=== PATIENT | male | born 1980 | race Caucasian/White ===

== ENCOUNTER 2016-12-14 17:50 | Emergency (ER) | payer OTHER ==
[~2016-12-14] VITALS: Ht 185.4 cm; Wt 81.8 kg
[2016-12-14 18:10] VITALS: Ht 185.4 cm; Wt 81.8 kg
[2016-12-14 18:53] LABS: ADD SCAN DIFF NO
[2016-12-14 18:55] LABS: BASOPHIL # 0.1 10^3/ul (0.0-0.1); EOSINOPHILS # 0.3 10^3/ul (0.0-0.5); EOSINOPHILS % 5.2 % (0.0-7.0); HEMATOCRIT 43.4 % (42.0-52.0); HEMOGLOBIN 15.1 g/dl (14.0-18.0); LYMPHOCYTES # 2.1 10^3/ul (0.8-2.9); LYMPHOCYTES % 33.3 % (15.0-51.0); MEAN CORPUSCULAR HEMOGLOBIN 32.5 pg (29.0-33.0); MEAN CORPUSCULAR HGB CONC 34.8 g/dl (32.0-37.0); MEAN CORPUSCULAR VOLUME 93.5 fl (82.0-101.0); MEAN PLATELET VOLUME 9.4 fl (7.4-10.4); MONOCYTE # 0.4 10^3/ul (0.3-0.9); MONOCYTES % 6.8 % (0.0-11.0); NEUTROPHIL # 3.4 10^3/ul (1.6-7.5); NEUTROPHILS % 53.5 % (39.0-77.0); PLATELET COUNT 280 10^3/UL (140-415); RED BLOOD COUNT 4.64 10^6/ul (4.70-6.10); RED CELL DISTRIBUTION WIDTH 12.8 % (11.5-14.5); WHITE BLOOD COUNT 6.3 10^3/ul (4.8-10.8)
[2016-12-14 19:13] LABS: ALBUMIN 3.3 g/dl (3.3-4.9); CHLORIDE 108 mmol/L (97-110); SODIUM 144 mmol/L (135-144)
[2016-12-14 19:14] LABS: POTASSIUM 3.6 mmol/L (3.5-5.1)
[2016-12-14 19:15] LABS: CREATININE 0.83 mg/dl (0.61-1.24)
[2016-12-14 19:16] LABS: ALANINE AMINOTRANSFERASE 38 IU/L (13-69); ALBUMIN/GLOBULIN RATIO 1.43; ALKALINE PHOSPHATASE 45 IU/L (42-121); ANION GAP 14 (8-16); ASPARTATE AMINO TRANSFERASE 33 IU/L (15-46); BILIRUBIN,INDIRECT 0.2 mg/dl (0-1.1); BILIRUBIN,TOTAL 0.2 mg/dl (0.2-1.3); BLOOD UREA NITROGEN 9 mg/dl (7-20); CALCIUM 8.5 mg/dl (8.4-10.2); CARBON DIOXIDE 26 mmol/L (21-31); GLUCOSE 109 mg/dl (70-220); TOTAL PROTEIN 5.6 g/dl (6.1-8.1)
[2016-12-14 19:20] LABS: ACETAMINOPHEN < 10.0 ug/ml (10.0-30.0); SALICYLATE < 1.0 mg/dl (5.0-30.0)
--- NOTE | 2016-12-14 21:03 | ERD ---
ER Documentation Chief Complaint Date/Time DATE: 12/14/16 TIME: 20:59 Chief Complaint etoh from drinking "4 [employer]"; sleeping on bus bench HPI 36-year-old man brought in by EMS for public intoxication. Patient admits to drinking alcohol today and has a history of alcoholism. Patient denies suicidal homicidal ideation, no vomiting or diarrhea, no complaints of chest pain or shortness of breath. Patient was transported here by EMS without further complications. ROS All systems reviewed and are negative except as per history of present illness. Medications Home Meds Unable to Obtain Active Prescriptions or Reported Meds Allergies Allergies: Coded Allergies: No Known Allergy (Unverified , 03/21/15) PMhx/Soc Medical and Surgical Hx: pt denies Medical Hx, pt denies Surgical Hx Anesthesia Reaction: No (RIYA) Hx Respiratory Disorders: No (RIYA) Hx Cardiac Disorders: No (RIYA) Hx Psychiatric Problems: Yes (MOOD DISORDER) Hx Alcohol Use: Yes Hx Tobacco Use: No Smoking Status: Current every day smoker FmHx Family History: No diabetes Physical Exam Vitals Vital Signs Date Time Temp Pulse Resp B/P Pulse Ox O2 Delivery O2 Flow Rate FiO2 12/14/16 18:10 98.1 18 18 108/56 97 Physical Exam GENERAL: Well-developed, well-nourished, patient was intoxicated with alcohol on breath HEENT: Moist mucous membranes, pink conjunctiva, no cervical spine tenderness or step-off deformities, no goiter, no jaundice or icterus, extraocular movements intact without pain. No submandibular induration, and no pharyngeal erythema NEURO: Alert and oriented 3, cranial nerves II through XII intact bilaterally, pupils equal round reactive to light, no focal deficits or facial asymmetry, sensation intact distally Strength 5/5 in upper and lower extremities bilaterally CARDIAC: Regular rate and rhythm, no murmurs rubs or gallops LUNGS: Clear bilaterally no wheezing crackles or stridor ABDOMEN: Soft nontender, no guarding, no rigidity, no rebound, no psoas sign no obturator sign. Normoactive bowel sounds SKIN: Warm and dry to touch, no abrasions, contusions, or hematomas, no lacerations, no ecchymosis, no target lesions, and without ulcers EXTREMITIES: No clubbing cyanosis or edema, calves are bilaterally symmetrical, no Homans sign, no popliteal cord sign. Distal pulses equal and bilateral PSYCH: Normal affect without agitation or irritability Result Diagram: 12/14/16 1848 12/14/16 1848 Results 24 hrs Laboratory Tests Test 12/14/16 18:48 White Blood Count 6.310^3/ul Red Blood Count 4.6410^6/ul Hemoglobin 15.1g/dl Hematocrit 43.4% Mean Corpuscular Volume 93.5fl Mean Corpuscular Hemoglobin 32.5pg Mean Corpuscular Hemoglobin Concent 34.8g/dl Red Cell Distribution Width 12.8% Platelet Count 18360^3/UL Mean Platelet Volume 9.4fl Neutrophils % 53.5% Lymphocytes % 33.3% Monocytes % 6.8% Eosinophils % 5.2% Basophils % 1.0% Nucleated Red Blood Cells % 0.0/100WBC Neutrophils # 3.410^3/ul Lymphocytes # 2.110^3/ul Monocytes # 0.410^3/ul Eosinophils # 0.310^3/ul Basophils # 0.110^3/ul Nucleated Red Blood Cells # 0.010^3/ul Sodium Level 144mmol/L Potassium Level 3.6mmol/L Chloride Level 108mmol/L Carbon Dioxide Level 26mmol/L Anion Gap 14 Blood Urea Nitrogen 9mg/dl Creatinine 0.83mg/dl Glucose Level 109mg/dl Calcium Level 8.5mg/dl Total Bilirubin 0.2mg/dl Direct Bilirubin 0.00mg/dl Indirect Bilirubin 0.2mg/dl Aspartate Amino Transf (AST/SGOT) 33IU/L Alanine Aminotransferase (ALT/SGPT) 38IU/L Alkaline Phosphatase 45IU/L Total Protein 5.6g/dl Albumin 3.3g/dl Globulin 2.30g/dl Albumin/Globulin Ratio 1.43 Salicylates Level < 1.0mg/dl Acetaminophen Level < 10.0ug/ml Ethyl Alcohol Level 330.0mg/dl Procedures/MDM Patient was placed in the ED gurney and slept comfortably. Patient's vital signs are normal. CBC and electrolytes are normal, aspirin Tylenol levels negative, alcohol level elevated at 330. Differential diagnoses considered, included but not limited to acute coronary syndrome, pulmonary embolism, aortic dissection, abdominal aortic aneurysm, sepsis, stroke, meningitis, encephalitis, pneumonia, appendicitis, cholecystitis , bowel obstruction, pyelonephritis, nephrolithiasis, cystitis, as well as metabolic, hematologic, and electrolyte abnormalities. As well as abscess, cellulitis, fractures, and dislocations. Patient feels much better at this time, and vital signs are normal, symptoms have improved. I did give strict instructions to return to the ED if symptoms continue or worsen, patient will otherwise follow-up with primary care physician. Patient understood instructions and agreed to plan. Departure Diagnosis: Primary Impression: Alcoholic intoxication Complication of substance-induced condition: uncomplicated Qualified Code: F10.120 - Alcoholic intoxication, uncomplicated Condition: Good Patient Instructions: Alcohol Intoxication ABILIO YEE MD December 14, 2016 21:02
== END 2016-12-14 21:48 | disposition left against medical advice (07) ==
LOC: E/R 17:50
DX: F10.120 Alcohol abuse with intoxication, uncomplicated (principal); F17.210 Nicotine dependence, cigarettes, uncomplicated
CPT/HCPCS: 80053; 80306; 85025; 99283

== ENCOUNTER 2017-11-08 21:24 | Emergency (ER) | END 2017-11-08 23:29 | disposition left against medical advice (07) ==

== ENCOUNTER 2018-01-06 19:28 | Emergency (ER) | END 2018-01-06 21:39 | disposition home or self-care (01) ==